=== PATIENT | female | born 2000 | race Caucasian/White ===

== ENCOUNTER 2020-10-02 14:11 | Emergency (ER) | payer SELFPAY ==
[~2020-10-02] VITALS: Ht 160 cm; Wt 54.4 kg
[2020-10-02 14:14] VITALS: BP 124/83
--- NOTE | 2020-10-02 14:15 | NUR ---
Patient ambulated to bed 04 with steady/even gait.
--- NOTE | 2020-10-02 14:16 | NUR ---
SEBASTIAN Gomez is evaluating patient at bedside.
--- NOTE | 2020-10-02 14:22 | NUR ---
20 y/o F coming in from home with c/c right hand pain. Patient states a month ago, she punched a car door and initially went to [place] to be seen, however, signed out AMA due to long wait times. Patient reports the pain has not improved since the incident. Hematoma noted above the 5th digit on right hand. Patient reports 6/10, sharp, intermittent, non-radiating pain. Patient reports no medications prior to arrival and has applied ice packs without relief. +CMS, patient without numbness/tingling to right hand and fingers. Limited ROM of 5th digit right hand. Patient denies other medical complainst at this time. Bed locked in lowest position, side rails x 1, call light in reach. PMH/Sx/Meds: Denies NKA
--- NOTE | 2020-10-02 14:38 | NUR ---
X-ray at bedside.
--- NOTE | 2020-10-02 14:54 | NUR ---
Contacted RAD for CD images; state will bring as soon as it's completed.
[2020-10-02] MEDS ORDERED: IBUP-1842 PO (15:05)
[2020-10-02 15:34] VITALS: BP 124/83
== END 2020-10-02 15:34 | disposition home or self-care (01) ==
LOC: MED 14:11
DX: S62.396A Other fracture of fifth metacarpal bone, right hand, initial encounter for closed fracture (principal); Z79.1 Long term (current) use of non-steroidal anti-inflammatories (NSAID); W22.8XXA Striking against or struck by other objects, initial encounter; Y92.89 Other specified places as the place of occurrence of the external cause; Y93.89 Activity, other specified; Y99.8 Other external cause status
CPT/HCPCS: 73130; 99283